=== PATIENT | male | born 1955 | race Caucasian/White ===

== ENCOUNTER 2024-01-29 12:05 | Outpatient (CLI) | payer OTHER, SELFPAY ==
--- NOTE | ~2024-01-29 | PE_ITS ---
EXAMINATION: PET_PETPSMAST_PT DATE: 01/29/2024 14:50 INDICATION: Prostate cancer TECHNIQUE: 8.855 mCi of pipflufolastat F-18 (18-F-DCFPyL) was administered i.v. Low dose computed to mography (CT) images were acquired from the base of the brain to the base of the brain to the proxima l thighs for attenuation correction and anatomic localization. Positron emission tomography (PET) tory ges were acquired in the same distribution beginning 92 minutes after injection. Images including fus ed PET/CT images were reconstructed in axial, coronal, and sagittal planes. Automated exposure contro l technique was employed. The dose-length product was 1272.16mGy-cm. COMPARISON: None FINDINGS: Head/neck: Typical pattern of symmetric physiologic increased activity in the lacrimal, parotid and submandibula r glands as well as along the mucosa of the nasal and oral cavities, the omid-, naso- and hypopharynx, the glottis and esophagus. There is also a typical pattern of symmetric tiny foci of mild likely phy siologic neural ganglia uptake at a few bilateral cervical neural foramina. No pathologically enlarge d cervical lymphadenopathy or suspicious foci of increased uptake in the visualized head or neck. Chest: Lungs are clear with no suspicious pulmonary nodules, pneumonia, pulmonary edema or pleural effusion. Heart size is normal. No pericardial effusion. Thoracic aorta is normal in caliber. No pathologicall y enlarged or PSMA avid thoracic lymphadenopathy. Abdomen/pelvis/proximal thighs: Physiologic renal accumulation and excretion of activity in the kidneys, bladder and along portions o f ureters. 1.4 cm exophytic cyst at the lower pole of the left kidney. Normal degree and slightly het erogenous pattern of increased uptake throughout the liver and spleen without radiologic correlate or dominant PSMA avid lesion. The gallbladder, pancreas and bilateral adrenal glands are normal. Modera te uptake scattered throughout the bowels with typical duodenal and proximal jejunal predominance and without radiologic correlate, also likely physiologic. There is an approximately 2 cm region of prom inent increased PSMA uptake at the posterior inferior prostate with maximal SUV of 22.6 which is with out correlate on the CT images. Small amount of PSMA uptake extending cephalad into the left and more prominently in the right seminal vesicles, the latter with maximal SUV of 7.3 and the former with ma ximal SUV of 6.1. Small left and moderate-sized right sided inguinal hernias, direct on the left and with both direct and indirect components on the right. No other abnormal foci of increased uptake or pathologically enlarged lymphadenopathy in the abdomen, pelvis or proximal thighs. Musculoskeletal: Severe lower lumbar facet osteoarthritis. Otherwise mild to moderate degenerative skeletal changes sc attered throughout the axial and appendicular skeleton. No suspicious lytic, blastic or PSMA avid bon e lesions to suggest osseous metastatic disease. IMPRESSION: 1. Approximately 2 cm focus of prominent PSMA activity at the posterior inferior aspect of the enlarg ed prostate consistent with primary prostate cancer and with increased uptake suggesting local invasi on extending into the bilateral seminal vesicles. 2. No other more remote metastatic disease. Reviewed, dictated and finalized at location A. IMPRESSION: 1. Approximately 2 cm focus of prominent PSMA activity at the posterior inferio r aspect of the enlarged prostate consistent with primary prostate cancer and w ith increased uptake suggesting local invasion extending into the bilateral mello inal vesicles. 2. No other more remote metastatic disease.
== END 2024-01-29 12:06 | disposition home or self-care (01) ==
PROVIDERS: PCP Family Medicine; Visit Provider Urology
DX: C61 Malignant neoplasm of prostate (principal)
CPT/HCPCS: 78815; A9595

== ENCOUNTER 2024-04-21 14:35 | Outpatient (CLI) | payer OTHER, SELFPAY ==
--- NOTE | ~2024-04-21 | MR_ITS ---
EXAMINATION: MR pelvis wo/w con DATE: 04/21/2024 16:06 INDICATION: Prostate cancer TECHNIQUE: Magnetic resonance imaging (MRI) of the pelvis was performed without and with 15 mL Multih ance intravenous contrast. Full-field sequences of the pelvis included axial and coronal T2-weighted SS FSE, axial, sagittal and coronal 2D FIESTA, axial 2D FIESTA FS, axial SSFSE-IR LEVAR, axial dual-ech o T1-weighted FSPGR, axial and coronal T1 weighted LAVA, 3D axial T2 Cube, axial diffusion-weighted S E with apparent diffusion coefficient (ADC) maps. Postcontrast sequences included a time course axial T1-weighted LAVA and sagittal and coronal T1-weighted LAVA. COMPARISON: PET/CT dated 01/29/2024 FINDINGS: Mild enlargement of the prostate which measures 4.6 cm craniocaudally and 4.6 x 3.5 cm and maximal tr ansaxial dimensions. There is a heterogeneous appearance to the prostate with small T2 hyperintense n onenhancing cyst like region anteriorly and a few foci of susceptibility artifact posteriorly which c ould be related to prior surgery or biopsy. There is a T2 hyperintense fluid collection likely repres enting hydrogel situated between the posterior margin of the prostate and seminal vesicles and the an terior margin of the rectum. This measures 4.0 cm craniocaudally, 2.4 cm left right and 1.3 cm emily posteriorly. Bladder is normal. No pathologically enlarged pelvic or inguinal lymphadenopathy. Small left and indirect left inguinal hernia and moderate-sized right inguinal hernia with both direct and indirect components. Normal bone marrow signal throughout with no pathologic marrow replacing process . IMPRESSION: 1. T2 hyperintense likely hydrogel spacer in expected position situated between the enlarged prostate in the anterior wall of the rectum. No evident metastatic disease. 2. Moderate-sized right and small left fat-containing inguinal hernias. Reviewed, dictated and finalized at location A. IMPRESSION: 1. T2 hyperintense likely hydrogel spacer in expected position situated between the enlarged prostate in the anterior wall of the rectum. No evident metastati c disease. 2. Moderate-sized right and small left fat-containing inguinal hernias.
== END 2024-04-21 14:36 | disposition home or self-care (01) ==
LOC: ANHIMG 14:38
PROVIDERS: PCP Family Medicine; Visit Provider Radiology Radiation Oncology
DX: C61 Malignant neoplasm of prostate (principal); K40.20 Bilateral inguinal hernia, without obstruction or gangrene, not specified as recurrent
CPT/HCPCS: 72197; A9577